=== PATIENT | male | born 1950 | race Caucasian/White ===

== ENCOUNTER 2018-09-10 11:26 | Day surgery (SDC) | payer MEDICARE ==
[2018-09-09 09:24] VITALS: BMI 25.0
[~2018-09-10 11:26] MED LIST: LACTATED RINGERS 1,000 ML IV SCH
[2018-09-10 12:03] VITALS: RESP 16; TEMP 97.9
[2018-09-10] MEDS ORDERED: LIDOCAINE 1% 20 ML VIAL (10MG/ML) FOR IV START INTRADERMA ONE (12:09)
[2018-09-10] MEDS ORDERED: PROPOFOL 10 MG/ML 20 ML VIAL IV ONE (13:57)
[2018-09-10] MEDS ORDERED: LIDOCAINE 1% INJ 10MG/ML (20 ML MDV) ONE (13:57)
--- NOTE | 2018-09-10 14:31 | P.PCN ---
Date of Procedure: 09/10/18 Procedure(s) Performed: Procedure: Total colonoscopy. Preoperative diagnosis: Screening for neoplasia. Postoperative diagnosis: Diverticulosis with no evidence of acute diverticulitis, strictures, polyps or cancer. Preparation: HalfLytely prep. Sedation: Was provided by anesthesia Brief clinical history: The patient is a 68-year-old male who is scheduled for this evaluation for screening for neoplasia age being his risk factor. He had a prior exam 10 years ago. The patient has no abdominal complaints, bleeding or anemia. Procedure: With the patient on his left lateral decubitus position and after informed consent and adequate sedation, the perianal area was inspected and it did not show any fissures or fistulas there were no masses felt on digital rectal examination. The Olympus CFH 190L video colonoscope was then inserted in the rectum in the usual fashion and advanced to the cecum. There were multiple diverticular orifices seen scattered on the left side and occasional orifices around the hepatic flexure but there was no evidence of acute diverticulitis or strictures. The mucosa appeared healthy. No polyps or tumors were seen. The patient tolerated the procedure well. Plan: The patient was reassured. Discussed dietary measures. He will follow-up with you as planned and I recommended repeat exam in 10 years.
[2018-09-10 14:34] VITALS: BP 92/62; PULSE 61
== END 2018-09-10 15:03 | disposition home or self-care (01) ==
LOC: ORWHC2ENDO 11:26
DX: Z12.11 Encounter for screening for malignant neoplasm of colon (principal); K57.30 Diverticulosis of large intestine without perforation or abscess without bleeding; C85.10 Unspecified B-cell lymphoma, unspecified site; G95.9 Disease of spinal cord, unspecified; R53.1 Weakness; N28.1 Cyst of kidney, acquired; Z97.2 Presence of dental prosthetic device (complete) (partial); Z87.891 Personal history of nicotine dependence
CPT/HCPCS: G0121; J2001; J2704

== ENCOUNTER → 2019-08-12 | Outpatient (CLI) | payer MEDICARE ==
[2019-08-12 14:13] LABS: African American GFR (CKD) >90 (>60 ml/min/1.73 sqM); Blood Urea Nitrogen 18 mg/dL (9-20); Non-African American GFR(CKD) 82 (>60 ml/min/1.73 sqM)
--- NOTE | 2019-08-12 16:25 | CT ---
EXAMINATION TYPE: CT ChestAbdPelvis w con DATE OF EXAM: 08/12/2019 COMPARISON: None. HISTORY: splenic marginal zone lymphoma CT DLP: 1221.5 mGycm. Automated Exposure Control for Dose Reduction was Utilized. CONTRAST: CT scan of the thorax, abdomen and pelvis is performed with IV Contrast, patient injected with 100 mL of Isovue 300. FINDINGS: LUNGS: Slightly elevated left hemidiaphragm. Mild to moderate linear scarring and/or atelectasis in b oth lung bases. No suspicious nodules or masses. There is no pleural effusion or pneumothorax seen b ilaterally. The tracheobronchial tree is patent. MEDIASTINUM: There are suspicious prominent but predominantly subcentimeter thoracic lymph nodes. For reference multiple AP window lymph nodes axial image 24 most posterior one measures 1.4 x 0.8 cm. Fo r a reference lymph node anterior superior mediastinum adjacent to left common carotid artery measure s 1.1 x 1.0 cm axial image 13. No cardiomegaly or pericardial effusion is seen. Prominent coronary ar michelle calculation proximal LAD axial image 36, noted risk factor for coronary artery disease. OTHER: Prominent asymmetric borderline enlarged left axillary lymph nodes axial image 13 for referenc e. LIVER/GB: Liver is not enlarged. Gallbladder is diffusely hyperdense suggesting gallbladder sludge. D ilated but patent and tortuous draining splenic vein noted. PANCREAS: [id number] generalized fat replaced atrophy. SPLEEN: Marked splenomegaly occupying the majority of left abdomen extending to upper pelvis causing significant local mass effect. Spleen measures 27.8 cm long axis coronal image 43 for reference ADRENALS: No significant abnormality is seen. KIDNEYS: A few small simple appearing thin-walled cysts scattered throughout both kidneys. BOWEL: The oral contrast reaches the level of the mid ileal loops in the right abdomen. No suspicious small or large bowel dilatation. Left colon deviated to the midline from splenomegaly. Prominent sig moid colonic diverticulosis without convincing CT evidence for acute diverticulitis. GENITAL ORGANS: No gross abnormality seen. LYMPH NODES: Suspicious prominent lymph nodes in the upper to mid abdomen for reference near SMA axia l image 68. For reference aortocaval lymph node measures 2.1 x 1.2 cm axial image 69. For reference s uspicious lymph node anterior to the abdominal aorta measuring 1.8 x 1.2 cm axial image 78 mid abdomi nal level. Suspicious borderline left iliac lymph node 1.0 x 0.9 cm axial image 106. OSSEOUS STRUCTURES: There is S shaped scoliosis of the thoracolumbar spine. Mild to moderate multilev el spurring and disc space narrowing. Facet arthropathy lower lumbar levels. Spurring at sacroiliac j oints. OTHER: No significant additional abnormality is seen. IMPRESSION: Marked splenomegaly with local mass effect. Suspicious prominent and borderline enlarged lymph nodes above and below diaphragm as detailed above. Correlate with PET/CT advised.
== END | disposition home or self-care (01) ==
LOC: RADCTMAIN 13:14
DX: C83.07 Small cell B-cell lymphoma, spleen (principal); M54.5 Low back pain
CPT/HCPCS: 82565; 84520; 71260; 74177; 36415; Q9967